=== PATIENT | female | born 1940 | race Caucasian/White ===

== ENCOUNTER → 2017-06-12 | Outpatient (CLI) | payer MEDICARE, OTHER ==
--- NOTE | ~2017-06-12 | MR113 ---
[facility] A Service of [facility] & [facility] RADIOLOGY TEXT RESULTS PATIENT: CHELITA ENAMORADO LOCATION: [facility] : 41 UNIT #: [id number] AGE: [address]: JULIO ISABEL MD SEX: F ORDER DR: [id number] [facility] [address] [place], [place] [address] [id number] O MR#: [id number] #: [id number] NAME: CHELITA ENAMORADO : 1940 SEX: F STUDY DATE/TIME: 06/12/2017 14:28 UNIT: [facility] ROOM: STUDY DESCRIPTION: MR Lumbar Wo Contrast Attending Physician: Julio Isabel M.D. Referring Physician: Julio Isabel M.D. Ordering Physician: Julio Isabel M.D. Primary Care Physician: Julio Isabel M.D. MRI CENTER REPORT This report is preliminary unless electronic signature is present. EXAM MRI lumbar spine without contrast HISTORY 77-year-old female low back and left hip pain with pain radiating into the left leg, worse over the past year. History of lumbar surgery 15 years ago. COMPARISON MR lumbar spine 08/06/2007. FINDINGS Multiplanar multiecho imaging was performed of the lumbar spine utilizing a high field magnet dedicated protocol. Examination demonstrates dextroscoliosis lumbar spine centered at L3-4. There is a focus of T1 hyperintensity within the T12 vertebral body compatible with hemangioma. This is unchanged from a 2007 study. There is extensive endplate marrow edema bordering the L2-3 disc space compatible with type 1 Modic changes and active edema and inflammation. No high signal seen along the disc to suggest diskitis. Normal termination of the conus. At T12-L1 there is degenerative disc changes with posterior disc protrusion and osteophyte contributing to right T12-L1 foraminal stenosis. No significant central canal stenosis. Mild right T12-L1 facet arthropathy. At L1-2 disc space is maintained. No spinal or foraminal stenosis. At L2-3 there is advanced degenerative disc changes with disc space narrowing, endplate marrow edema and mild circumferential disc bulge contributing to mild spinal stenosis and predominately left L2-3 foraminal stenosis. [facility]. [facility] A Service of [facility] RADIOLOGY TEXT RESULTS PATIENT: CHELITA ENAMORADO LOCATION: [facility] : 41 UNIT #: [id number] AGE: [address]: JULIO ISABEL MD SEX: F ORDER DR: At L3-4 there is disc space narrowing and mild circumferential disc bulge with mild left L3-4 foraminal stenosis. Advanced bilateral L3-4 facet arthropathy, left greater than right. At L4-5 there is grade 1 spondylolisthesis L4-L5 with moderate stenosis due to a combination of disc protrusion and listhesis. There is bilateral L4-5 facet arthropathy. At L5-S1 there is degenerative disc changes with a right paracentral and foraminal disc protrusion contributing to right L5-S1 foraminal stenosis. Posterior elements demonstrate mild facet arthropathy on the right. Paravertebral soft tissues remarkable for mild paraspinal muscle atrophy. Small renal cortical cyst. IMPRESSION 1. Moderately advanced multilevel degenerative disc disease as described above in [id number] detail. Degenerative disc changes most pronounced L2-3 with extensive endplate marrow edema bordering L2-3 disc space and this represents a change from the patient's study in 2006 and may be a significant contributing factor to active back pain. Patient demonstrates moderate dextroscoliosis with corresponding degenerative disc changes. Please see above for [id number] details. 2. There is stable grade 1 spondylolisthesis L4 on L5 which is felt to be on the basis of facet arthropathy. This contributes to moderate to severe L4-5 central canal and foraminal stenosis. Dictated by... Gerri Stratton M.D. THIS IS AN ELECTRONICALLY VERIFIED REPORT Gerri Stratton M.D. at 06/16/2017 1:32 PM JEANE/shai TD: 06/16/2017 05:28 JOB #: [id number] MRI CENTER REPORT Page 1 of 1 COPY
--- NOTE | ~2017-06-12 | MR83 ---
[facility] A Service of [facility] & [facility] RADIOLOGY TEXT RESULTS PATIENT: CHELITA ENAMORADO LOCATION: [facility] : 41 UNIT #: [id number] AGE: [address]: JULIO ISABEL MD SEX: F ORDER DR: [id number] [facility] [address] [place], [place] [address] [id number] O MR#: [id number] Acc #: [id number] NAME: CHELITA ENAMORADO : 1940 SEX: F STUDY DATE/TIME: 06/12/2017 15:06 UNIT: [facility] ROOM: STUDY DESCRIPTION: MR Hip Wo Contrast Lt Attending Physician: Julio Isabel M.D. Referring Physician: Julio Isabel M.D. Ordering Physician: Julio Isabel M.D. Primary Care Physician: Julio Isabel M.D. MRI CENTER REPORT This report is preliminary unless electronic signature is present. EXAM MRI of the left hip and pelvis HISTORY 77-year-old female, left hip pain getting worse over the last 6 months. Loss of strength. No specific injury. History of lumbar disease and prior back surgery. FINDINGS Multiplanar multiecho imaging was performed of the hips and pelvis utilizing a high field magnet and dedicated protocol. Dextroscoliosis lumbar spine with multilevel degenerative disc disease which appears advanced at the L2-3 and L3-4 disc levels. Please see separate MRI report of lumbar spine for additional details. There is extensive edema within the lower lumbar spine to the right of midline and superior aspect of the right stacy-sacrum. This may be related to an anomalous articulation between the lateral process of L5 with the sacrum. This may also just be related to the patient's underlying scoliosis with abutment of these two anatomic structures with secondary degenerative change. The extensive marrow edema suggests that this may be a significant contributing factor to the patient's right-sided pain. Detailed imaging of the hip joints demonstrates physiologic amount of joint fluid. No significant articular cartilage loss. Minimal degeneration of the anterior superior labrum but no definitive tear. Mild inflammation over both greater trochanters, nonspecific. There is minimal right gluteus medius peritendinitis but no high-grade tendinopathy or tear. There is high-grade tendinopathy of the right hamstring origin with a partial tear. Minimal tendinopathy noted at the left hamstring origin. Internal pelvic structures to include the bladder uterus unremarkable. No pelvic masses. [facility]. [facility] A Service of [facility] RADIOLOGY TEXT RESULTS PATIENT: CHELITA ENAMORADO LOCATION: [facility] : 41 UNIT #: [id number] AGE: [address]: JULIO ISABEL MD SEX: F ORDER DR: IMPRESSION 1. Extensive marrow edema involving the right lateral process of L5 as well as adjacent marrow edema within the superior aspect of the right stacy-sacrum. These 2 structures appear to closely abut and this could represent either an anomalous articulation or possibly abutment due to patient's scoliosis. The presence of significant marrow edema may imply that this may be a significant contributing factor to the patient's right-sided pain. 2. Mild peritendinitis involving the right gluteus medius tendon insertion. No high-grade tendinopathy. 3. High-grade tendinopathy involving the origin of the right hamstrings with partial tear at the hamstring origin. 4. Moderately advanced multilevel degenerative disc disease lumbar spine. Please see separate MRI report of lumbar spine for details. Dictated by... Gerri Stratton M.D. THIS IS AN ELECTRONICALLY VERIFIED REPORT Gerri Stratton M.D. at 06/15/2017 5:38 PM JEANE/lorri TD: 06/15/2017 17:01 JOB #: [id number] MRI CENTER REPORT Page 1 of 1 COPY
== END | disposition home or self-care (01) ==
LOC: CMRI 13:34
DX: M54.5 Low back pain (principal); M25.552 Pain in left hip; K59.00 Constipation, unspecified; M76.31 Iliotibial band syndrome, right leg; M77.9 Enthesopathy, unspecified; M51.36 Other intervertebral disc degeneration, lumbar region; M43.16 Spondylolisthesis, lumbar region; M12.88 Other specific arthropathies, not elsewhere classified, other specified site; M48.06 Spinal stenosis, lumbar region
CPT/HCPCS: 72148; 73721